=== PATIENT | male | born 1980 | race Caucasian/White ===

== ENCOUNTER → 2017-09-12 | Outpatient (CLI) | payer OTHER ==
--- NOTE | 2017-09-12 16:40 | RAD ---
Left knee, 3 views, 09/12/2017: HISTORY: Injury, lump The inferior aspect of an intramedullary elkin is evident in the distal femur. There is mild marginal spurring at the knee joint and at the patellofemoral articulation. No fracture or dislocation is identified. No significant joint effusion is evident. IMPRESSION: 1. Mild degenerative change. 2. No acute bony abnormality is detected. Electronically signed by: Moi Tran MD (09/12/2017 4:37 PM) [facility]
== END | disposition home or self-care (01) ==
LOC: DXRAD 11:29
PROVIDERS: ATTEND Physician Assistant Medical
DX: M17.12 Unilateral primary osteoarthritis, left knee (principal)
CPT/HCPCS: 73562

== ENCOUNTER 2017-11-05 17:51 | Emergency (ER) | payer OTHER ==
[~2017-11-05] VITALS: Ht 182.9 cm; Wt 145.1 kg
[2017-11-05] MEDS ORDERED: ASPIRIN 81 MG TAB.CHEW ONE (18:05)
[2017-11-05] MEDS ORDERED: NITROGLYCERIN SUBLINGUAL 0.4 MG BOTTLE OF 25. SL ONE (18:06)
--- NOTE | 2017-11-05 18:17 | EKG ---
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
[2017-11-05] MEDS ORDERED: NITROGLYCERIN PREMIX 250 ML IV ONE (18:30)
[2017-11-05 18:34] VITALS: BP 218/113
--- NOTE | 2017-11-05 18:36 | ED.ADGEN ---
Past History Past Medical History: Asthma, Hypertension Smoking: Chew Alcohol Use: Occasionally Drug Use: None Adult General Chief Complaint Chief Complaint Chest pain HPI HPI Patient presents with complaints as left precordial chest pain nonradiating occurring at 1 PM associated with diaphoresis 6/10 in severity. Patient notes no aggravating or alleviating factors. Patient has HTN, denies, DM or elevated cholesterol. Review of Systems Review of Systems Constitutional: Denies fever or chills, diaphoretic Eyes: Denies change in visual acuity, redness, or eye pain HENT: Denies nasal congestion or sore throat Respiratory: Denies cough or shortness of breath Cardiovascular: With Left precordial chest pain GI: Denies abdominal pain, nausea, vomiting, bloody stools or diarrhea : Denies dysuria or hematuria Musculoskeletal: Denies back pain or joint pain Integument: Denies rash or skin lesions Neurologic: Denies headache, focal weakness or sensory changes Endocrine: Denies polyuria or polydipsia All other systems were reviewed and found to be within normal limits, except as documented in this note. Current Medications Current Medications Current Medications Medications (Trade) Dose Ordered Sig/Annita Start Time Stop Time Status Last Admin Dose Admin Aspirin (Children'S Aspirin) 324 mg 1X ONCE 11/05/17 18:45 11/05/17 18:46 DC 11/05/17 18:06 324 MG Heparin Sodium (Porcine) (Heparin Sodium) 4,000 unit 1X ONCE 11/05/17 19:00 11/05/17 19:01 DC 11/05/17 18:42 4,000 UNIT Nitroglycerin (Nitrostat) 0.4 mg STK-MED ONCE 11/05/17 18:06 11/05/17 18:07 DC Nitroglycerin/ Dextrose 250 ml @ 1.5 mls/hr 1X ONCE 11/05/17 18:30 11/05/17 19:17 DC 11/05/17 18:47 1.5 MLS/HR Allergies Allergies Allergies Coded Allergies Type Severity Reaction Last Updated Verified No Known Drug Allergies 11/05/17 No Physical Exam Physical Exam Constitutional: Well developed, well nourished,morbidly obese, diaphoretic. HENT: Normocephalic, atraumatic, bilateral external ears normal, oropharynx moist, no oral exudates, nose normal. Eyes: PERRLA, EOMI, conjunctiva normal, no discharge. Neck: Normal range of motion, no tenderness, supple, no stridor. Cardiovascular:Heart rate regular rhythm, no murmur Lungs & Thorax: Bilateral breath sounds clear to auscultation Abdomen: Bowel sounds normal, soft, no tenderness, no masses, no pulsatile masses. Skin: Warm, dry, no erythema, no rash. Back: No tenderness, no CVA tenderness. Extremities: No tenderness, no cyanosis, no clubbing, ROM intact, no edema. Neurologic: Alert and oriented X 3, normal motor function, normal sensory function, no focal deficits noted. Psychologic: Affect normal, judgement normal, mood normal. Current Patient Data Vital Signs Vital Signs Date Time Temp Pulse Resp B/P (MAP) Pulse Ox O2 Delivery O2 Flow Rate FiO2 11/05/17 18:34 92 16 218/113 (148) 98 Room Air 11/05/17 17:54 98.4 Lab Results Laboratory Tests Test 11/05/17 18:10 11/05/17 18:15 White Blood Count 9.9 x10^3/uL (4.0-11.0) Red Blood Count 4.56 x10^6/uL (4.30-5.70) Hemoglobin 13.8 g/dL (13.0-17.5) Hematocrit 39.2 % (39.0-53.0) Mean Corpuscular Volume 86 fL (79-100) Mean Corpuscular Hemoglobin 30 pg (25-35) Mean Corpuscular Hemoglobin Concent 35 g/dL (31-37) Red Cell Distribution Width 14.9 % (11.5-14.5) H Platelet Count 200 x10^3/uL (140-400) Neutrophils (%) (Auto) 71 % (31-73) Lymphocytes (%) (Auto) 20 % (24-48) L Monocytes (%) (Auto) 6 % (0-9) Eosinophils (%) (Auto) 2 % (0-3) Basophils (%) (Auto) 1 % (0-3) Neutrophils # (Auto) 7.0 x10^3uL (1.8-7.7) Lymphocytes # (Auto) 2.0 x10^3/uL (1.0-4.8) Monocytes # (Auto) 0.6 x10^3/uL (0.0-1.1) Eosinophils # (Auto) 0.2 x10^3/uL (0.0-0.7) Basophils # (Auto) 0.1 x10^3/uL (0.0-0.2) Prothrombin Time 9.9 SEC (9.4-11.4) Prothrombin Time INR 1.0 (0.9-1.1) PTT 26 SEC (23-33) D-Dimer (Lisa) < 0.19 mg/L (0.00-0.50) Sodium Level 139 mmol/L (136-145) Potassium Level 3.5 mmol/L (3.5-5.1) Chloride Level 101 mmol/L (98-107) Carbon Dioxide Level 31 mmol/L (21-32) Anion Gap 7 (6-14) Blood Urea Nitrogen 15 mg/dL (8-26) Creatinine 0.9 mg/dL (0.7-1.3) Estimated GFR (Cockcroft-Gault) 95.0 BUN/Creatinine Ratio 17 (6-20) Glucose Level 160 mg/dL (70-99) H Calcium Level 8.8 mg/dL (8.5-10.1) Total Bilirubin 0.6 mg/dL (0.2-1.0) Aspartate Amino Transferase (AST) 27 U/L (15-37) Alanine Aminotransferase (ALT) 56 U/L (16-63) Alkaline Phosphatase 93 U/L (46-116) Creatine Kinase 284 U/L (39-308) Creatine Kinase MB (Mass) 2.3 ng/mL (0.0-3.6) Creatine Kinase MB Relative Index 0.8 % (0-4) Troponin I Quantitative < 0.017 ng/mL (0-0.055) NW-Sby-E-Type Natriuretic Peptide 160 pg/mL (0-124) H Total Protein 7.6 g/dL (6.4-8.2) Albumin 3.6 g/dL (3.4-5.0) Albumin/Globulin Ratio 0.9 (1.0-1.7) L POC Troponin I 0.01 ng/ml (<0.08) Laboratory Tests Test 11/05/17 18:10 11/05/17 18:15 White Blood Count 9.9 x10^3/uL Red Blood Count 4.56 x10^6/uL Hemoglobin 13.8 g/dL Hematocrit 39.2 % Mean Corpuscular Volume 86 fL Mean Corpuscular Hemoglobin 30 pg Mean Corpuscular Hemoglobin Concent 35 g/dL Red Cell Distribution Width 14.9 % Platelet Count 200 x10^3/uL Neutrophils (%) (Auto) 71 % Lymphocytes (%) (Auto) 20 % Monocytes (%) (Auto) 6 % Eosinophils (%) (Auto) 2 % Basophils (%) (Auto) 1 % Neutrophils # (Auto) 7.0 x10^3uL Lymphocytes # (Auto) 2.0 x10^3/uL Monocytes # (Auto) 0.6 x10^3/uL Eosinophils # (Auto) 0.2 x10^3/uL Basophils # (Auto) 0.1 x10^3/uL Prothrombin Time 9.9 SEC Prothromb Time International Ratio 1.0 Activated Partial Thromboplast Time 26 SEC D-Dimer (Lisa) < 0.19 mg/L Sodium Level 139 mmol/L Potassium Level 3.5 mmol/L Chloride Level 101 mmol/L Carbon Dioxide Level 31 mmol/L Anion Gap 7 Blood Urea Nitrogen 15 mg/dL Creatinine 0.9 mg/dL Estimated GFR (Cockcroft-Gault) 95.0 BUN/Creatinine Ratio 17 Glucose Level 160 mg/dL Calcium Level 8.8 mg/dL Total Bilirubin 0.6 mg/dL Aspartate Amino Transf (AST/SGOT) 27 U/L Alanine Aminotransferase (ALT/SGPT) 56 U/L Alkaline Phosphatase 93 U/L Creatine Kinase 284 U/L Creatine Kinase MB (Mass) 2.3 ng/mL Creatine Kinase MB Relative Index 0.8 % Troponin I Quantitative < 0.017 ng/mL WA-Ofr-N-Type Natriuretic Peptide 160 pg/mL Total Protein 7.6 g/dL Albumin 3.6 g/dL Albumin/Globulin Ratio 0.9 Bedside Troponin I 0.01 ng/ml Current Medications Medications (Trade) Dose Ordered Sig/Annita Route PRN Reason Start Time Stop Time Status Last Admin Dose Admin Aspirin (Children'S Aspirin) 81 mg STK-MED ONCE .ROUTE 11/05/17 18:05 11/05/17 18:06 DC Nitroglycerin (Nitrostat) 0.4 mg STK-MED ONCE SL 11/05/17 18:06 11/05/17 18:07 DC Aspirin (Children'S Aspirin) 324 mg 1X ONCE PO 11/05/17 18:45 11/05/17 18:46 DC 11/05/17 18:06 324 MG Nitroglycerin/ Dextrose 250 ml @ 1.5 mls/hr 1X ONCE IV 11/05/17 18:30 11/05/17 19:17 DC 11/05/17 18:47 1.5 MLS/HR Heparin Sodium (Porcine) (Heparin Sodium) 4,000 unit 1X ONCE IV 11/05/17 19:00 11/05/17 19:01 DC 11/05/17 18:42 4,000 UNIT EKG EKG ECG NSR with ST elevation III, aVF with reciprocal changes aVL Radiology/Procedures Radiology/[place] [address] IMAGING REPORT Signed PATIENT: ROSEANN DODGE ACCOUNT: [id number] : 1980 LOCATION: ER AGE: 37 SEX: M EXAM STATUS: REG ER ORD. PHYSICIAN: MIKAEL DENISE MD REASON: chest pain PROCEDURE: PORTABLE CHEST 1V Chest radiograph 11/05/2017 6:06 PM INDICATION: Chest pain COMPARISON: None available TECHNIQUE: Portable upright frontal view of the chest is provided. FINDINGS: The cardiomediastinal silhouette is within normal limits. There are no pleural effusions. There is no pulmonary vascular congestion. There is no pneumothorax. The lungs are clear. No significant osseous abnormality is identified. IMPRESSION: No acute cardiopulmonary process. Electronically signed by: Isael Hickman MD (11/05/2017 6:45 PM) [facility] DICTATED AND SIGNED BY: ISAEL HICKMAN MD DATE: 11/05/17 8570 CC: MIKAEL DENIES MD; BEATRICE NUNEZ ~ Course & Med Decision Making Course & Med Decision Making Patient presents with complaints of substernal chest pain left precordial DDx-acute coronary syndrome, pulmonary embolism, CHF Patient was hypertensive in the ED. Noting initial ECG changes code STEMI called. 18:[address] Sheth will see the patient at [facility]. 18:30 Patient's chest pain improved after nitroglycerin glycerin sublingual. Patient placed on nitroglycerin drip. CXR unremarkable .Patient given aspirin and heparin bolus 4000U. Final Impression Final Impression Clinical Impression Inferior STEMI Dragon Disclaimer Dragon Disclaimer This electronic medical record was generated, in whole or in part, using a voice recognition dictation system. Departure Departure: Impression: Primary Impression: STEMI (ST elevation myocardial infarction) Disposition: 05 XFER OTHER Condition: STABLE Critical Care Note Total Time (mins): 30 Comments Critical care time was spent treating patient chest pain, speaking with consultants and preparing patient for transport to [facility] for emergent cardiac catheterization. Critical Care Time Critical care time was 30 minutes exclusive of procedures. MIKAEL DENISE MD Nov 05, 2017 18:36
[2017-11-05 18:43] LABS: BASO # 0.1 x10^3/uL (0.0-0.2); BASO % 1 % (0-3); EOS # 0.2 x10^3/uL (0.0-0.7); EOS % 2 % (0-3); HEMATOCRIT 39.2 % (39.0-53.0); HEMOGLOBIN 13.8 g/dL (13.0-17.5); LYMPH % 20 % (24-48); MEAN CORPUSCULAR HEMOGLOBIN 30 pg (25-35); MEAN CORPUSCULAR HGB CONC 35 g/dL (31-37); MEAN CORPUSCULAR VOLUME 86 fL (79-100); MONO # 0.6 x10^3/uL (0.0-1.1); MONO % 6 % (0-9); NEUT % 71 % (31-73); PLATELET COUNT 200 x10^3/uL (140-400); RED BLOOD COUNT 4.56 x10^6/uL (4.30-5.70); RED CELL DISTRIBUTION WIDTH 14.9 % (11.5-14.5); WHITE BLOOD COUNT 9.9 x10^3/uL (4.0-11.0)
[2017-11-05] MEDS ORDERED: ASPIRIN 81 MG TAB.CHEW PO ONE (18:45)
--- NOTE | 2017-11-05 18:48 | RAD ---
Chest radiograph 11/05/2017 6:06 PM INDICATION: Chest pain COMPARISON: None available TECHNIQUE: Portable upright frontal view of the chest is provided. FINDINGS: The cardiomediastinal silhouette is within normal limits. There are no pleural effusions. There is no pulmonary vascular congestion. There is no pneumothorax. The lungs are clear. No significant osseous abnormality is identified. IMPRESSION: No acute cardiopulmonary process. Electronically signed by: Lucía Hanks MD (11/05/2017 6:45 PM) [facility]
[2017-11-05] MEDS ORDERED: HEPARIN for IV BOLUS 10,000 UNIT/10 ML VIAL. IV ONE (19:00)
[2017-11-05 19:01] LABS: ALBUMIN 3.6 g/dL (3.4-5.0); ALBUMIN/GLOBULIN RATIO 0.9 (1.0-1.7); CALCIUM 8.8 mg/dL (8.5-10.1); CREATININE 0.9 mg/dL (0.7-1.3); POTASSIUM 3.5 mmol/L (3.5-5.1); TOTAL BILIRUBIN 0.6 mg/dL (0.2-1.0); TOTAL PROTEIN 7.6 g/dL (6.4-8.2)
--- NOTE | 2017-11-07 09:09 | EKG ---
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
== END 2017-11-05 18:45 | disposition short-term general hospital (02) ==
LOC: ER 17:51
DX: I21.19 ST elevation (STEMI) myocardial infarction involving other coronary artery of inferior wall (principal); J45.909 Unspecified asthma, uncomplicated; I10 Essential (primary) hypertension; F17.220 Nicotine dependence, chewing tobacco, uncomplicated
CPT/HCPCS: 36415; 71045; 80053; 82553; 83880; 84484; 85025; 85379; 85610; 85730; 93005; 96374; 96375; 99291; J1644; J3490

== ENCOUNTER 2018-12-22 17:09 | Emergency (ER) | payer MEDICAID ==
[~2018-12-22] VITALS: Ht 185.4 cm; Wt 157.9 kg
--- NOTE | 2018-12-22 18:41 | PHYS DOC ---
Past History Past Medical History: Asthma, Hypertension Past Surgical History: Other Smoking: Chew Alcohol Use: Occasionally Drug Use: None Adult General Chief Complaint Chief Complaint: ABDOMINAL PAIN [facility] HPI Patient is a 38-year-old male who presents with complaint of periumbilical abdominal pain that started last night at about 6 PM. Patient states that recently he had a stomach bug and had nausea with vomiting. He states that later he went to see his primary provider who found the patient has an abdominal hernia. Patient states that the pain that he is having is in the region of the hernia and describes pain as throbbing in nature. He rates it at a 6 out of 10. He denies any nausea, vomiting or diarrhea. Patient states the pain is worsened when he stands up and with movement.[] Review of Systems Review of Systems Constitutional: Denies fever or chills [] Respiratory: Denies cough or shortness of breath [] Cardiovascular: No additional information not addressed in HPI [] GI: Complains of abdominal pain without vomiting or diarrhea [] : Denies dysuria or hematuria [] Musculoskeletal: Denies back pain or joint pain [] Neurologic: Denies headache, focal weakness or sensory changes [] All other systems were reviewed and found to be within normal limits, except as documented in this note. Allergies Allergies Allergies Coded Allergies Type Severity Reaction Last Updated Verified No Known Drug Allergies 11/05/17 No Physical Exam Physical Exam Constitutional: Well developed, well nourished, no acute distress, non-toxic appearance. [] HENT: Normocephalic, atraumatic, bilateral external ears normal, oropharynx moist, no oral exudates, nose normal. [] Eyes: PERRLA, EOMI, conjunctiva normal, no discharge. [] Neck: Normal range of motion, no tenderness, supple, no stridor. [] Cardiovascular:Heart rate regular rhythm, no murmur [] Lungs & Thorax: Bilateral breath sounds clear to auscultation [] Abdomen: Bowel sounds normal, soft, with periumbilical tenderness. [] Skin: Warm, dry, no erythema, no rash. [] Extremities: No tenderness, no cyanosis, no clubbing, ROM intact. [] Neurologic: Alert and oriented X 3, no focal deficits noted. [] EKG EKG [] Radiology/Procedures Radiology/Procedures [] Impressions: PROCEDURE: CT ABD PELV W/ IV CONTRST ONLY CT abdomen pelvis with contrast dated 12/22/2018. No comparison available. CLINICAL INDICATION: Periumbilical pain. TECHNIQUE: Per contiguous axial imaging of the abdomen and pelvis performed after the administration of 100 cc Omnipaque 300. One or more of the following individualized dose reduction techniques were utilized for this examination: 1. Automated exposure control 2. Adjustment of the mA and/or kV according to patient size 3. Use of iterative reconstruction technique. FINDINGS: Limited images of lung bases show calcified granuloma in the left lower lobe. Heart size within normal limits. No pleural or pericardial effusion. Liver is of diffuse low density, compatible with fatty infiltration. No apparent mass. Gallbladder unremarkable. Spleen is mildly enlarged. Pancreas, adrenal glands and kidneys are unremarkable. No hydronephrosis. Unopacified GI tract normal in caliber and contour. No focal bowel wall thickening. No inflammatory stranding in the mesentery. Appendix normal in caliber. No ascites or lymphadenopathy. There is a multiloculated complex supraumbilical ventral hernia containing only fat. There least 3 small separate hernia necks. Images the pelvis show nondistended urinary bladder. Prostate gland normal in size. No free fluid or lymphadenopathy. Bone windows show no acute findings. Mild lower lumbar spondylosis. IMPRESSION: 1. Small complex supraumbilical ventral hernia containing only fat. 2. Mild fatty infiltration of the liver. 3. Otherwise no significant abnormality. Electronically signed by: Paul Davis MD (12/22/2018 8:58 PM) [facility] Course & Med Decision Making Course & Med Decision Making Pertinent Labs and Imaging studies reviewed. (See chart for details) [] Dragon Disclaimer Dragon Disclaimer This electronic medical record was generated, in whole or in part, using a voice recognition dictation system. Departure Departure: Impression: Primary Impression: Abdominal pain Additional Impression: Abdominal hernia Disposition: 01 HOME, SELF-CARE Condition: STABLE Referrals: BEATRICE NUNEZ (PCP) Patient Instructions: Abdominal Pain, Hernia Scripts Hydrocodone Bit/Acetaminophen (NORCO 5-325 TABLET) 1 Each Tablet 1 TAB PO PRN Q6HRS PRN for PAIN, #12 TAB 0 Refills Prov: SIMRAN SEWELL Jr. DO 12/22/18 Ondansetron Hcl (ZOFRAN) 4 Mg Tablet 4 MG PO Q6H PRN for NAUSEA, #12 TAB Prov: SIMRAN SEWELL Jr. DO 12/22/18 Problem Qualifiers Primary Impression: Abdominal pain Abdominal location: periumbilical Qualified Codes: R10.33 - Periumbilical pain Additional Impression: Abdominal hernia Hernia type: ventral Obstruction and gangrene presence: without obstruction or gangrene Qualified Codes: K43.9 - Ventral hernia without obstruction or gangrene SIMRAN SEWELL Jr. DO Dec 22, 2018 18:41
[2018-12-22] MEDS ORDERED: MORPHINE SULFATE 4 MG/ML DISP.SYRIN. IV/SQ PRN (18:45)
[2018-12-22] MEDS ORDERED: IV NORMAL SALINE 1,000ML 1,000 ML IV SCH (19:00)
[2018-12-22] MEDS ORDERED: ONDANSETRON PF 4 MG/2 ML VIAL. IV ONE (19:00)
[2018-12-22 19:18] LABS: BASO # 0.1 x10^3/uL (0.0-0.2); BASO % 1 % (0-3); EOS # 0.2 x10^3/uL (0.0-0.7); EOS % 2 % (0-3); HEMATOCRIT 41.5 % (39.0-53.0); HEMOGLOBIN 13.9 g/dL (13.0-17.5); LYMPH % 15 % (24-48); MEAN CORPUSCULAR HEMOGLOBIN 29 pg (25-35); MEAN CORPUSCULAR HGB CONC 34 g/dL (31-37); MEAN CORPUSCULAR VOLUME 86 fL (79-100); MONO % 7 % (0-9); NEUT # 9.9 x10^3uL (1.8-7.7); NEUT % 76 % (31-73); PLATELET COUNT 249 x10^3/uL (140-400); RED BLOOD COUNT 4.83 x10^6/uL (4.30-5.70); RED CELL DISTRIBUTION WIDTH 15.2 % (11.5-14.5); WHITE BLOOD COUNT 13.1 x10^3/uL (4.0-11.0)
[2018-12-22 19:37] LABS: ALBUMIN 3.7 g/dL (3.4-5.0); ALBUMIN/GLOBULIN RATIO 0.9 (1.0-1.7); CALCIUM 9.4 mg/dL (8.5-10.1); CREATININE 1.2 mg/dL (0.7-1.3); GFR 67.8; POTASSIUM 3.7 mmol/L (3.5-5.1); TOTAL BILIRUBIN 0.5 mg/dL (0.2-1.0); TOTAL PROTEIN 7.8 g/dL (6.4-8.2)
[2018-12-22 19:48] VITALS: BP 137/77
[2018-12-22 19:48] LABS: BACTERIA,URINE 0 /HPF (0-FEW); BILIRUBIN,URINE NEG (NEG); CLARITY,URINE HAZY; COLOR,URINE YELLOW; GLUCOSE,URINE 500 mg/dL (NEG); GRANULAR CASTS,URINE OCC /HPF; NITRITE,URINE NEG (NEG); SQUAMOUS EPITHELIAL CELL,UR OCC /LPF; UROBILINOGEN,URINE 1 mg/dL (0.2 mg/dL)
[2018-12-22] MEDS ORDERED: IOHEXOL 300 MG/ML 75 ML VIAL. IV ONE ×2 (20:30)
--- NOTE | 2018-12-22 21:00 | RAD ---
CT abdomen pelvis with contrast dated 12/22/2018. No comparison available. CLINICAL INDICATION: Periumbilical pain. TECHNIQUE: Per contiguous axial imaging of the abdomen and pelvis performed after the administration of 100 cc Omnipaque 300. One or more of the following individualized dose reduction techniques were utilized for this examination: 1. Automated exposure control 2. Adjustment of the mA and/or kV according to patient size 3. Use of iterative reconstruction technique. FINDINGS: Limited images of lung bases show calcified granuloma in the left lower lobe. Heart size within normal limits. No pleural or pericardial effusion. Liver is of diffuse low density, compatible with fatty infiltration. No apparent mass. Gallbladder unremarkable. Spleen is mildly enlarged. Pancreas, adrenal glands and kidneys are unremarkable. No hydronephrosis. Unopacified GI tract normal in caliber and contour. No focal bowel wall thickening. No inflammatory stranding in the mesentery. Appendix normal in caliber. No ascites or lymphadenopathy. There is a multiloculated complex supraumbilical ventral hernia containing only fat. There least 3 small separate hernia necks. Images the pelvis show nondistended urinary bladder. Prostate gland normal in size. No free fluid or lymphadenopathy. Bone windows show no acute findings. Mild lower lumbar spondylosis. IMPRESSION: 1. Small complex supraumbilical ventral hernia containing only fat. 2. Mild fatty infiltration of the liver. 3. Otherwise no significant abnormality. Electronically signed by: Paul Davis MD (12/22/2018 8:58 PM) [facility]
[2018-12-22] MEDS ORDERED: HYDR-3165 PO (21:36)
[2018-12-22] MEDS ORDERED: ONDA4TAB7 PO (21:36)
== END 2018-12-22 21:42 | disposition home or self-care (01) ==
LOC: ER 17:09
DX: K43.9 Ventral hernia without obstruction or gangrene (principal); J45.909 Unspecified asthma, uncomplicated; I10 Essential (primary) hypertension; F17.220 Nicotine dependence, chewing tobacco, uncomplicated
CPT/HCPCS: 36415; 74177; 80053; 81001; 83690; 85025; 96361; 96374; 96375; 99285; J2270; J2405; Q9967; J7030